=== PATIENT | female | born 1990 | race American Indian/Alaskan Native ===

== ENCOUNTER 2018-05-04 18:55 | Emergency (ER) | payer OTHER ==
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
[2018-05-04 19:15] VITALS: BP 138/89
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
--- NOTE | 2018-05-04 20:11 | XRay Report ---
PROCEDURE: RIGHT KNEE WITH OBLIQUE VIEW TECHNIQUE: RIGHT knee radiographs, AP, lateral, and oblique views. CPT 76361 HISTORY: Right knee pain COMPARISONS: None . FINDINGS: Fracture (s) and/or Dislocation(s): None . Alignment: Normal . Joint space(s): Normal . Soft tissues: Normal . Bone mineralization: Normal . Foreign bodies: None . IMPRESSION: Normal Examination . This document is electronically signed by Rajat Vargas MD., May 04 2018 08:09:33 PM ET
[2018-05-04] MEDS ORDERED: NORCO 5/325 PO ONE (20:47)
[2018-05-04] MEDS ORDERED: NORCO 5/325 ONE (20:47)
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
== END 2018-05-04 21:35 | disposition home or self-care (01) ==
LOC: ED 18:55
DX: S39.012A Strain of muscle, fascia and tendon of lower back, initial encounter (principal); S80.01XA Contusion of right knee, initial encounter; I10 Essential (primary) hypertension; V49.59XA Passenger injured in collision with other motor vehicles in traffic accident, initial encounter; Y93.89 Activity, other specified; Y92.488 Other paved roadways as the place of occurrence of the external cause; Y99.8 Other external cause status
CPT/HCPCS: 72100; 99283

== ENCOUNTER 2018-09-13 17:35 | Emergency (ER) | payer MEDICAID, OTHER ==
--- NOTE | 2018-09-13 18:03 | Event Note ---
Date: 09/13/18 28 y.o female at 11 weeks presents to ER with Headache for the past 24 hrs, frontal, 7/10, sharp, without radiation, fever or neck pain. She has been taking tylenol without relief. Patient also c/o seeing blood in toilet paper when wiping after urination x 1 day. 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 The initial assessment/diagnostic orders/clinical plan/treatment(s) is/are subject to change based on patient's health status,clinical progression and re- assessment by fellow clinical providers in the ED. Further treatment and workup at subsequent clinical providers discretion. Patient/guardian urged not to elope from the ED as their condition may be serious if not clinically assessed and managed.
[2018-09-13 18:22] LABS: Bilirubin,Urine NEG (Negative); Blood,Urine NEG (Negative); Color,Urine Yellow (Yellow); Protein,Urine <15 mg/dL mg/dL (Negative); Urobilinogen,Urine < 2.0 mg/dL (<2.0)
--- NOTE | 2018-09-13 18:47 | Emergency Department Report ---
ED Female HPI - General Chief complaint: Vaginal Bleeding Stated complaint: 14 WKS /BLEEDING Time Seen by Provider: 09/13/18 18:41 Source: patient Mode of arrival: Ambulatory Limitations: No Limitations - History of Present Illness Initial comments: 28 y.o female at 11 weeks presents to ER with Headache for the past 24 hrs, frontal, 7/10, sharp, without radiation, fever or neck pain. She has been taking tylenol without relief. Patient also c/o seeing blood in toilet paper when wiping after urination x 1 day. 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 states headache is resolved with tylenol. MD Complaint: vaginal bleeding Onset/Timin -: days(s) Radiation: non-radiating Severity: moderate Severity scale (0 -10): 3 Quality: cramping Consistency: constant Improves with: none Worsens with: none Are you Now?: Yes Last Menstrual Period: 07/16/18 EDC: 04/22/19 Associated Symptoms: vaginal bleeding - Related Data Sexually active: Yes : 3 Para: 2 A: 0 Previous Rx's Medication Instructions Recorded Last Taken Type hydroCHLOROthiazide [HCTZ] 12.5 mg PO QDAY #30 capsule 01/19/16 Unknown Rx Ketorolac [Toradol] 10 mg PO Q6H PRN #15 tablet 05/04/18 Unknown Rx methOCARBAMOL [Robaxin TAB] 750 mg PO Q8H PRN #14 tablet 05/04/18 Unknown Rx Acetaminophen [Acetaminophen TAB] 650 mg PO Q6HR PRN #30 tablet 09/13/18 Unknown Rx Allergies Allergy/AdvReac Type Severity Reaction Status Date / Time No Known Allergies Allergy Verified 05/04/18 20:47 ED Review of Systems ROS: Stated complaint: 14 WKS /BLEEDING Other details as noted in HPI Constitutional: denies: chills, fever Eyes: denies: eye pain, eye discharge, vision change ENT: denies: ear pain, throat pain Respiratory: denies: cough, shortness of breath, wheezing Cardiovascular: denies: chest pain, palpitations Endocrine: no symptoms reported Gastrointestinal: denies: abdominal pain, nausea, vomiting, diarrhea Genitourinary: other (vaginal bleeding ). denies: urgency, dysuria, frequency, hematuria, discharge Musculoskeletal: denies: back pain, joint swelling, arthralgia Skin: denies: rash, lesions Neurological: denies: headache, weakness, paresthesias Psychiatric: denies: anxiety, depression Hematological/Lymphatic: denies: easy bleeding, easy bruising ED Past Medical Hx - Past Medical History Previous Medical History?: Yes Hx Hypertension: Yes - Surgical History Past Surgical History?: No - Social History Smoking Status: Never Smoker Substance Use Type: None - Medications Home Medications: Home Medications Medication Instructions Recorded Confirmed Last Taken Type hydroCHLOROthiazide [HCTZ] 12.5 mg PO QDAY #30 capsule 01/19/16 Unknown Rx Ketorolac [Toradol] 10 mg PO Q6H PRN #15 tablet 05/04/18 Unknown Rx methOCARBAMOL [Robaxin TAB] 750 mg PO Q8H PRN #14 tablet 05/04/18 Unknown Rx Acetaminophen [Acetaminophen TAB] 650 mg PO Q6HR PRN #30 tablet 09/13/18 Unknown Rx ED Physical Exam - General Limitations: No Limitations General appearance: alert, in no apparent distress - Head Head exam: Present: atraumatic, normocephalic - Eye Eye exam: Present: normal appearance, PERRL, EOMI Pupils: Present: normal accommodation - ENT ENT exam: Present: mucous membranes moist - Neck Neck exam: Present: normal inspection, full ROM. Absent: tenderness, meningismus, lymphadenopathy, thyromegaly - Respiratory Respiratory exam: Present: normal lung sounds bilaterally. Absent: respiratory distress, wheezes, stridor, chest wall tenderness - Cardiovascular Cardiovascular Exam: Present: regular rate, normal rhythm, normal heart sounds. Absent: systolic murmur, diastolic murmur, rubs, gallop - GI/Abdominal GI/Abdominal exam: Present: soft, tenderness (mild super pubic pain with deep palpation), normal bowel sounds. Absent: distended, guarding, rebound, rigid, bruit, hernia - Rectal Rectal exam: Present: deferred - Extremities Exam Extremities exam: Present: normal inspection, full ROM, normal capillary refill. Absent: tenderness, pedal edema, joint swelling, calf tenderness - Back Exam Back exam: Present: normal inspection, full ROM. Absent: tenderness, CVA tenderness (R), CVA tenderness (L), muscle spasm, paraspinal tenderness, vertebral tenderness, rash noted - Neurological Exam Neurological exam: Present: alert, oriented X3, CN II-XII intact, normal gait, reflexes normal - Psychiatric Psychiatric exam: Present: normal affect, normal mood - Skin Skin exam: Present: warm, dry, intact, normal color. Absent: rash ED Course Vital Signs 09/13/18 17:50 Temperature 99.3 F Pulse Rate 83 Respiratory 20 Rate Blood Pressure 145/96 O2 Sat by Pulse 100 Oximetry ED Medical Decision Making - Radiology Data Radiology results: report reviewed, image reviewed Single IUP 12 weeks, 4 days, FHR: 172 bpm; - Medical Decision Making headache relieved, us: Single IUP 12 weeks, 4 days, FHR: 172 bpm pt refuses labs, ua noted normal, plan pt will signout ama, pt will follow up with NIGHT SHIFT MANAGER in 2-3 days pt verbalized agreement and understanding of signing out AMA , Critical care attestation.: If time is entered above; I have spent that time in minutes in the direct care of this critically ill patient, excluding procedure time. ED Disposition Clinical Impression: Abdominal pain during intrauterine Qualifiers: Weeks of gestation: 12 weeks Qualified Code(s): Z3A.12 - 12 weeks gestation of Disposition: DC-01 TO HOME OR SELFCARE Is pt being admited?: No Does the pt Need Aspirin: No Condition: Undetermined Prescriptions: Acetaminophen [Acetaminophen TAB] 650 mg PO Q6HR PRN #30 tablet PRN Reason: Pain Referrals: ESTHER ROJAS MD [Staff Physician] - 3-5 Days Forms: AMA Form Time of Disposition: 20:52
--- NOTE | 2018-09-13 20:48 | Ultrasound Report ---
FIRSTTRIMESTER OBSTETRIC ULTRASOUND HISTORY: Vaginal bleeding and abdominal pain COMPARISON: None. TECHNIQUE: Routine transabdominal OB ultrasound performed. FINDINGS: Gestational Sac: Well-defined oval shape and intrauterine in location. Fetus/Embryo: Thoreau-rump length of 6.15 cm, corresponding to an estimated gestational age of 12 weeks 4 days. Embryonic/ anatomy was not evaluated Embryonic/ cardiac activity: 172bpm Placenta: Too small for evaluation. Amniotic fluid volume: Subjectively appropriate for gestational age. Ovaries: The right ovary is normal in size and appearance with normal blood flow, measuring 4.3 x 4. 3 x 3.8 cm. There is a 2.7 x 2.6 x 3.5 cm right ovarian cyst. The left ovary is normal in size and ap pearance with normal blood flow, measuring 2.9 x 2.2 x 2.4 cm. Hypoechoic space-occupying mass in th e ovary with peripheral vascularity is most likely the corpus luteum. Additional findings: None. IMPRESSION 1. Early live intrauterine 12 weeks 4 days EDC 04/02/2019. 2. Right ovarian cyst Signer Name: Efrem Muñoz MD Signed: 09/13/2018 8:44 PM Workstation Name: [id number]
[2018-09-13 20:58] VITALS: BP 134/84
== END 2018-09-13 20:57 | disposition home or self-care (01) ==
LOC: ED 17:35
DX: O26.891 Other specified pregnancy related conditions, first trimester (principal); R10.2 Pelvic and perineal pain; O16.1 Unspecified maternal hypertension, first trimester; Z3A.12 12 weeks gestation of pregnancy; Z79.899 Other long term (current) drug therapy
CPT/HCPCS: 76801; 81001

== ENCOUNTER 2018-09-14 11:33 | Emergency (ER) | payer MEDICAID ==
--- NOTE | 2018-09-14 11:43 | Emergency Department Report ---
Blank Doc - Documentation Documentation: This is a 28-year-old female that presents with worsening vaginal bleeding. S tated was here yesterday but no blood has been drawn. Ultrasound was reviewed and within normal limits from yesterday with 12 weeks. This initial assessment/diagnostic orders/clinical plan/treatment(s) is/are subject to change based on patient's health status, clinical progression and re- assessment by fellow clinical providers in the ED. Further treatment and workup at subsequent clinical providers discretion. Patient/guardians urged not to elope from the ED as their condition may be serious if not clinically assessed and managed. Initial orders include: 1- Patient sent to [facility] for further evaluation and treatment 2- labs 3- UA
[2018-09-14 12:13] LABS: Basophils % (Auto) 0.3 % (0.0-1.8); Eosinophils % (Auto) 0.5 % (0.0-4.3); Hematocrit 40.2 % (30.3-42.9); Hemoglobin 13.4 gm/dl (10.1-14.3); Lymphocytes % (Auto) 22.4 % (13.4-35.0); Mean Corpuscular HGB Conc 33 % (30-34); Mean Corpuscular Volume 86 fl (79-97); Monocytes # (Auto) 0.5 K/mm3 (0.0-0.8); Monocytes % (Auto) 5.2 % (0.0-7.3); Platelet Count 221 K/mm3 (140-440); Red Blood Count 4.68 M/mm3 (3.65-5.03); Red Cell Distribution Width 12.6 % (13.2-15.2)
[2018-09-14 12:16] LABS: Amorphous Crystals,Urine Few; Bilirubin,Urine NEG (Negative); Blood,Urine LG (Negative); Color,Urine Yellow (Yellow); Protein,Urine <15 mg/dL mg/dL (Negative); Urobilinogen,Urine < 2.0 mg/dL (<2.0)
[2018-09-14] MEDS ORDERED: TYLENOL PO ONE (13:23)
[2018-09-14] MEDS ORDERED: ALDOMET PO ONE ×2 (13:23→14:00)
--- NOTE | 2018-09-14 13:30 | Emergency Department Report ---
ED General Adult HPI - General Chief complaint: Vaginal Bleeding Stated complaint: 12 WEEKS /VAGINAL DISCHARGE Time Seen by Provider: 09/14/18 11:41 Source: patient Mode of arrival: Ambulatory Limitations: No Limitations - History of Present Illness Initial comments: Martha is a 28-year-old female who is currently 12 weeks accordi ng to ultrasound performed yesterday here in the ED. She presents with persistent vaginal bleeding, persistent frontal headache. Headache is 8 out of 10 throbbing headache. No treatment attempted at home. Vaginal bleeding is heavier than before. For the past 3 years she's had pre-existing hypertension. SHe is currently not taking any antihypertensive medications. -: Gradual, days(s) (2) Location: head Consistency: constant Improves with: none Worsens with: none Associated Symptoms: other (vaginal bleeding) - Related Data Previous Rx's Medication Instructions Recorded Last Taken Type hydroCHLOROthiazide [HCTZ] 12.5 mg PO QDAY #30 capsule 01/19/16 Unknown Rx Ketorolac [Toradol] 10 mg PO Q6H PRN #15 tablet 05/04/18 Unknown Rx methOCARBAMOL [Robaxin TAB] 750 mg PO Q8H PRN #14 tablet 05/04/18 Unknown Rx Acetaminophen [Acetaminophen TAB] 650 mg PO Q6HR PRN #30 tablet 09/13/18 Unknown Rx Methyldopa [Aldomet] 250 mg PO BID 30 Days #60 tablet 09/14/18 Unknown Rx Allergies Allergy/AdvReac Type Severity Reaction Status Date / Time No Known Allergies Allergy Verified 05/04/18 20:47 ED Review of Systems ROS: Stated complaint: 12 WEEKS /VAGINAL DISCHARGE Other details as noted in HPI Comment: All other systems reviewed and negative Constitutional: denies: fever, malaise Neurological: headache ED Past Medical Hx - Past Medical History Previous Medical History?: Yes Hx Hypertension: Yes - Social History Smoking Status: Never Smoker Substance Use Type: None - Medications Home Medications: Home Medications Medication Instructions Recorded Confirmed Last Taken Type hydroCHLOROthiazide [HCTZ] 12.5 mg PO QDAY #30 capsule 01/19/16 Unknown Rx Ketorolac [Toradol] 10 mg PO Q6H PRN #15 tablet 05/04/18 Unknown Rx methOCARBAMOL [Robaxin TAB] 750 mg PO Q8H PRN #14 tablet 05/04/18 Unknown Rx Acetaminophen [Acetaminophen TAB] 650 mg PO Q6HR PRN #30 tablet 09/13/18 Unknown Rx Methyldopa [Aldomet] 250 mg PO BID 30 Days #60 tablet 09/14/18 Unknown Rx ED Physical Exam - General Limitations: No Limitations General appearance: alert, in no apparent distress, other (appears well, appears nontoxic, appears comfortable) - Head Head exam: Present: atraumatic, normocephalic - Eye Eye exam: Present: normal appearance - ENT ENT exam: Present: mucous membranes moist - Neck Neck exam: Present: normal inspection, full ROM - Respiratory Respiratory exam: Present: normal lung sounds bilaterally. Absent: respiratory distress, wheezes, rales, rhonchi - Cardiovascular Cardiovascular Exam: Present: regular rate, normal rhythm, normal heart sounds. Absent: systolic murmur, diastolic murmur, rubs, gallop - GI/Abdominal GI/Abdominal exam: Present: soft, normal bowel sounds. Absent: distended, tenderness, guarding, rebound - Extremities Exam Extremities exam: Present: normal inspection - Back Exam Back exam: Present: normal inspection - Neurological Exam Neurological exam: Present: alert, oriented X3 - Psychiatric Psychiatric exam: Present: normal affect, normal mood - Skin Skin exam: Present: warm, dry, intact, normal color. Absent: rash ED Course Vital Signs 09/14/18 11:43 Temperature 99.1 F Pulse Rate 82 Respiratory 18 Rate Blood Pressure 170/89 O2 Sat by Pulse 99 Oximetry ED Medical Decision Making - Lab Data Result diagrams: 09/14/18 11:50 - Medical Decision Making Martha is currently 12 weeks . She presents with headache and vaginal bleeding. 1. Mild headache is typical for her tension headache, recommended Tylenol. First dose provided in the ED. 2. Threatened miscarriage, 18 hours ago ultrasound obtained in this emergency department which revealed viable IUP. 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 Blood type B positive H&H within normal limits 3. Hypertensive urgency, she has a history of pre-existing hypertension. Medication is indicated. I prescribed methyldopa 250 mg twice a day. First dose provided in the ED. Critical care attestation.: If time is entered above; I have spent that time in minutes in the direct care of this critically ill patient, excluding procedure time. ED Disposition Clinical Impression: Hypertensive urgency, Tension headache, Threatened miscarriage Disposition: DC-01 TO HOME OR SELFCARE Is pt being admited?: No Does the pt Need Aspirin: No Condition: Stable Instructions: Hypertension (ED), Threatened Miscarriage (ED), Tension Headache (ED), Acute Headache (ED) Additional Instructions: Please provide this discharge report to your wild oyster harvester on Saturday during your next appointment. Please inform your wild oyster harvester that you were started on blood pressure medication. Prescriptions: Methyldopa [Aldomet] 250 mg PO BID 30 Days #60 tablet
[2018-09-14 14:07] VITALS: BP 171/111
== END 2018-09-14 14:24 | disposition home or self-care (01) ==
LOC: ED 11:33
DX: O20.0 Threatened abortion (principal); O26.891 Other specified pregnancy related conditions, first trimester; I16.0 Hypertensive urgency; O16.1 Unspecified maternal hypertension, first trimester; Z79.899 Other long term (current) drug therapy; Z3A.12 12 weeks gestation of pregnancy
CPT/HCPCS: 36415; 81001; 84702; 85025; 86850; 86900; 86901; 99283

== ENCOUNTER 2018-11-13 00:37 | Emergency (ER) | payer MEDICAID, OTHER ==
[2018-11-12 23:16] LABS: Bacteria,Urine 1+ /HPF (Negative); Bilirubin,Urine NEG (Negative); Blood,Urine NEG (Negative); Calcium Oxalate Crystals,Urine 2+; Color,Urine Yellow (Yellow); Mucus,Urine 2+ /HPF; Protein,Urine <15 mg/dL mg/dL (Negative); Urobilinogen,Urine < 2.0 mg/dL (<2.0)
[2018-11-12 23:20] LABS: Amphetamine Screen,Urine PRESUMPTIVE NEGATIVE; Benzodiazepines Screen,Urine PRESUMPTIVE NEGATIVE; Cannabinoid Screen,Urine PRESUMPTIVE NEGATIVE; Cocaine Screen,Urine PRESUMPTIVE NEGATIVE; Methadone Screen,Urine PRESUMPTIVE NEGATIVE; Opiate Screen,Urine PRESUMPTIVE NEGATIVE
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
[~2018-11-13 00:37] MED LIST: LACTATED RINGERS 1,000 ML IV ONE
[2018-11-13 00:58] VITALS: BP 128/81
[2018-11-13] MEDS ORDERED: ACETAMINOPHEN 325 MG TAB PO ONE ×2 (01:18→04:15)
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
== END 2018-11-13 01:42 | disposition home or self-care (01) ==
LOC: TRG 00:37 → ED 00:37 → TRG 01:42
DX: O26.892 Other specified pregnancy related conditions, second trimester (principal); O9A.212 Injury, poisoning and certain other consequences of external causes complicating pregnancy, second trimester; S30.1XXA Contusion of abdominal wall, initial encounter; Z79.899 Other long term (current) drug therapy; Z3A.24 24 weeks gestation of pregnancy; V49.9XXA Car occupant (driver) (passenger) injured in unspecified traffic accident, initial encounter; Y93.89 Activity, other specified; Y92.89 Other specified places as the place of occurrence of the external cause; Y99.8 Other external cause status
CPT/HCPCS: 76815; 80307; 81001; 99284; J7120